=== PATIENT | male | born 1970 | race Caucasian/White ===

== ENCOUNTER 2019-01-19 08:14 | Emergency (ER) | payer OTHER ==
[2019-01-19 08:37] LABS: RAPID GROUP A STREP POSITIVE (NEGATIVE)
[2019-01-19] MEDS ORDERED: PENICILLIN G BENZATHINE LA 1.2 MILUNITS/2 ML SYG ONE (09:11)
[2019-01-19] MEDS ORDERED: DEXAMETHASONE SOD PHOSPHATE 4 MG/ML 1ML VIAL ONE (09:13)
== END 2019-01-19 09:40 | disposition home or self-care (01) ==
LOC: EDH 08:14
DX: J02.0 Streptococcal pharyngitis (principal); I10 Essential (primary) hypertension
CPT/HCPCS: 87804 ×2; 87880; 96372 ×2; 99284; J0561; J1100